=== PATIENT | female | born 1955 | race Caucasian/White ===

== ENCOUNTER → 2017-08-12 | Outpatient (CLI) | payer OTHER ==
[~2017-08-12] MED LIST: IOHEXOL 240 MG/ML 50ML VIAL. PO
[2017-08-12] MEDS: IOHEXOL 240 MG/ML 50ML VIAL. IV (10:59)
[2017-08-12] MEDS: IOHEXOL 300 MG/ML 100ML VIAL. IV (10:59)
== END | disposition home or self-care (01) ==
LOC: KCIC CT 09:07
DX: K57.90 Diverticulosis of intestine, part unspecified, without perforation or abscess without bleeding (principal)
CPT/HCPCS: 74177; Q9966; Q9967

== ENCOUNTER → 2018-08-24 | Outpatient (CLI) | payer OTHER ==
[~2018-08-24] MED LIST changes: +ALBU2.5V8 IH; +CITA20TA6 PO; -IOHEXOL 240 MG/ML 50ML VIAL. PO; +LISI-338 PO; +SIMV20TA3 PO
--- NOTE | 2018-08-24 16:35 | KCIC ---
CHEST PA LATERAL Clinical indications: Bronchitis. Productive cough. Past smoker. COMPARISON: April 04, 2010. Findings: No acute lung infiltrate or pleural effusion or pulmonary edema or lung mass or pneumothorax is seen. The heart size, pulmonary vasculature, mediastinum and both shell are unremarkable. The osseous structures appear intact. Impression: No acute radiographic abnormality is seen. Electronically signed by: Aly Vazquez MD (08/24/2018 4:31 PM) [facility]
== END | disposition home or self-care (01) ==
LOC: KCIC 10:58
PROVIDERS: ATTEND Nurse Practitioner Gerontology
DX: J40 Bronchitis, not specified as acute or chronic (principal); Z87.891 Personal history of nicotine dependence
CPT/HCPCS: 71046

== ENCOUNTER → 2020-03-06 | Outpatient (CLI) | payer OTHER ==
[~2020-03-06] MED LIST changes: +CONTRAST GIVEN. MC PRN; +IOHEXOL 240 MG/ML 50ML VIAL. PO ONE; +IOHEXOL 300 MG/ML 100ML VIAL. IV ONE; +SIMV20TA18 PO; -SIMV20TA3 PO
--- NOTE | 2020-03-06 16:26 | KCIC ---
EXAM: Abdomen and pelvis CT with intravenous contrast. HISTORY: Right lower quadrant pain. TECHNIQUE: Computed tomographic images of the abdomen and pelvis were obtained following the administration of intravenous contrast. Multiplanar reformatting was performed. *One or more of the following individualized dose reduction techniques were utilized for this examination: 1. Automated exposure control. 2. Adjustment of the mA and/or kV according to patient size. 3. Use of iterative reconstruction technique. COMPARISON: 08/12/2017. FINDINGS: Evaluation of the lower thorax demonstrates lingular and medial right middle lobe atelectasis or scarring. There is no infiltrate or pleural effusion. There is mild hepatic steatosis. No suspicious hepatic lesion is seen. The gallbladder and pancreas are unremarkable. There is a granuloma within the normal sized spleen. The adrenal glands and kidneys are unremarkable. There is no appendicitis. There is no bowel obstruction. There is distal colonic diverticulosis. There is no evidence of diverticulitis. The urinary bladder is empty. The uterus and adnexal regions are unremarkable. There is aortic and aortic branch vessel atherosclerosis. No aneurysm is seen. No lymphadenopathy is seen. No suspicious osseous lesion is seen. IMPRESSION: 1. No acute abdominal or pelvic finding. 2. Colonic diverticulosis. 2. Suspected slight hepatic steatosis. Electronically signed by: María Denney MD (03/06/2020 4:23 PM) [id number]
== END | disposition home or self-care (01) ==
LOC: KCIC CT 13:06
PROVIDERS: ATTEND Family Medicine
DX: K57.30 Diverticulosis of large intestine without perforation or abscess without bleeding (principal)
CPT/HCPCS: 74177; Q9966; Q9967

== ENCOUNTER 2021-09-22 01:28 | Emergency (ER) | payer BC, OTHER ==
[~2021-09-22] VITALS: Ht 157.5 cm; Wt 95.4 kg
[~2021-09-22 01:28] MED LIST changes: -CONTRAST GIVEN. MC PRN; -IOHEXOL 240 MG/ML 50ML VIAL. PO ONE; -IOHEXOL 300 MG/ML 100ML VIAL. IV ONE; -LISI-338 PO; +LISI5TAB15 PO
--- NOTE | 2021-09-22 01:32 | PHYS DOC ---
General Adult EDM: Chief Complaint: SHORTNESS OF BREATH HPI: HPI: Patient is a 66 year old female who presents with several months of intermittent shortness of breath, several weeks of coughing. She denies hemoptysis. She does report coughing up sputum. Sputum production changed within the last 2 weeks. She reports over the past few days, her cough and shortness of breath has become much worse, and she has been wheezing as well. She is taking albuterol as needed, without any relief. She reports that 1 or 2 weeks ago, she was seen by a nurse practitioner at her primary care doctor's office and was prescribed a Z-Balta and prednisone. She reports feeling better for a small amount of time, but symptoms never really improved. She is a former smoker, quit smoking in 2005. She has not been formally diagnosed with any specific lung disease, has never reportedly seen a abatement worker. She denies chest pain. She denies fevers or chills. She denies abdominal Pain, nausea, vomiting, lower extremity pain or swelling. She denies recent surgery, travel, hospitalization within the last 90 days. No previous history of intubation, respiratory failure or supplemental oxygen requirement. Review of Systems: Review of Systems: Constitutional: Denies fever or chills. [] HENT: Denies nasal congestion or sore throat. [] Respiratory: Cough, dyspnea, wheezing. Denies hemoptysis Cardiovascular: Denies chest pain or edema. [] GI: Denies abdominal pain, nausea, vomiting Musculoskeletal: Denies back pain or joint pain. Denies calf pain or lower extremity swelling. Integument: Denies rash. [] Neurologic: Denies headache, focal weakness or sensory changes. Denies dizziness or syncope. Psychiatric: Anxiety as it pertains to current clinical condition Heart Score: C/O Chest Pain: No Risk Factors: Risk Factors: DM, Current or recent (<one month) smoker, HTN, HLP, family history of CAD, obesity. Risk Scores: Score 0 - 3: 2.5% MACE over next 6 weeks - Discharge Home Score 4 - 6: 20.3% MACE over next 6 weeks - Admit for Clinical Observation Score 7 - 10: 72.7% MACE over next 6 weeks - Early Invasive Strategies Allergies: Allergies: Allergies Coded Allergies Type Severity Reaction Last Updated Verified Citric Acid Allergy Intermediate 11/09/14 Yes codeine Allergy Intermediate 11/09/14 Yes shellfish derived Allergy Intermediate 11/09/14 Yes Physical Exam: PE: Constitutional: Well developed, well nourished, mild to moderate respiratory distress, nontoxic. She does appear slightly older than stated age and is chronically ill-appearing. HENT: Normocephalic, atraumatic Eyes: Conjunctiva normal, no discharge. [] Neck: Normal range of motion, no tenderness, supple, no stridor. Trachea midline, no JVD, no meningismus Cardiovascular:Heart rate regular rhythm, +2 radial and +2 posterior tibial pulses bilaterally Lungs & Thorax: Mild to moderate tachypnea, inspiratory and expiratory wheezes bilaterally, coarse rhonchi bilaterally. Diminished breath sounds at bilateral bases. No stridor. Occasional pursed lip breathing, speaks in short but full sentences. No cyanosis. Abdomen: Abdomen is soft, nondistended, nontender to palpation Skin: Warm, dry, no erythema, no rash. [] Extremities: No tenderness, no cyanosis, no clubbing, ROM intact, no edema. No calf tenderness Neurologic: She is awake, alert, oriented x3, ambulatory with a steady gait, grossly normal motor function, no facial asymmetry, speech is fluent Psychologic: Anxious but cooperative EKG: EKG: EKG is interpreted at 0237 Rhythm is sinus Rate is 76 bpm [place] is left No STEMI Radiology/Procedures: Radiology/Procedures: IMAGING REPORT Signed PATIENT: ABEL CANO ACCOUNT: [id number] : 1955 LOCATION: ER AGE: 66 SEX: F EXAM STATUS: PRE ER ORD. PHYSICIAN: TERESA HENDERSON DO REASON: cough, dyspnea PROCEDURE: PORTABLE CHEST 1V XR CHEST 1V INDICATION: cough, dyspnea COMPARISON STUDY: 08/24/2018. FINDINGS: Lungs: Normal lung volume. No pulmonary mass or consolidation. The tracheobronchial tree and hilar structures are normal. Pleura: No pleural effusion or pneumothorax. Heart and Mediastinum: The cardiomediastinal silhouette is normal. The great vessels of the thorax are normal. IMPRESSION: No consolidation. Electronically signed by: Iván Bridges MD (09/22/2021 2:07 AM) [facility] DICTATED and SIGNED BY: IVÁN BRIDGES MD DATE: 09/22/21 [id number] 0 Course & Med Decision Making: Course & Med Decision Making Pertinent Labs and Imaging studies reviewed. (See chart for details) Is given Solu-Medrol, duo nebs and albuterol neb treatment. P.o. Tessalon given for cough. She is markedly improved. She reports no longer feeling dyspneic, or tachypnea is resolved, she manifest evidence of respiratory distress. She is resting much more comfortably. Lung exam is markedly improved. She does still have some scattered rhonchi, wheezing is resolved. O2 saturation 94 to 95% on room air. I have discussed the findings, differential diagnosis and plan of care with her. Clinically, she is otherwise well-appearing, markedly improved, hemodynamically stable, manifest no evidence of distress or hypoxia, no current clinical indication for admission at this time. I recommend she contact her primary care doctor for follow-up, she actually has an appointment scheduled tomorrow. I recommend she follow-up with outpatient pulmonology as well, as she may need further investigation for possible underlying obstructive pulmonary disease. Strict return precautions are given. She feels comfortable to plan of care. He is discharged in stable and improved condition. Dragon Disclaimer: Dragon Disclaimer: This electronic medical record was generated, in whole or in part, using a voice recognition dictation system. Departure Departure Impression: Primary Impression: Acute bronchospasm Additional Impressions: Dyspnea Qualified Codes: R06.00 - Dyspnea, unspecified History of tobacco use Disposition: HOME / SELF CARE / HOMELESS Condition: STABLE Referrals: ARTUR WILLIAM MD (PCP) MIREYA IRVING MD Patient Instructions: Bronchitis, Bronchospasm, Adult Additional Instructions: Take the medications as directed. You may use your inhaler every 4 hours as needed for wheezing. Please return to the ER for chest pain, refractory wheezing, any evidence of respiratory distress, uncontrolled vomiting, dehydration, if you develop a temperature of 100.4 or higher or for any other concerns. Please keep your appointment on Wednesday with your primary care doctor. You should consider outpatient pulmonology follow-up for further investigation of possible underlying chronic lung disease. Scripts Cefdinir (CEFDINIR) 300 Mg Capsule 1 CAP PO BID for 5 Days, #10 CAP Prov: TERESA HENDERSON DO 09/22/21 Prednisone (PREDNISONE) 50 Mg Tablet 1 TAB PO DAILY for 5 Days, #5 TAB Prov: TERESA HENDERSON DO 09/22/21 Benzonatate (BENZONATATE) 200 Mg Capsule 1 CAP PO PRN TID PRN for cough, #20 CAP 0 Refills Prov: TERESA HENDERSON DO 09/22/21 TERESA HENDERSON DO Sep 22, 2021 01:32
[2021-09-22] MEDS ORDERED: methylPREDNISolone SOD SUCC PF 125 MG/2 ML VIAL. IV ONE (02:00)
[2021-09-22] MEDS ORDERED: IPRATRPIUM/ALBUTEROL 0.5/2.5MG 3 ML NEBU. NEB ONE (02:00)
[2021-09-22] MEDS ORDERED: BENZONATATE 100 MG CAPSULE. PO ONE (02:00)
[2021-09-22 02:04] LABS: BASO # 0.1 x10^3/uL (0.0-0.2); BASO % 1 % (0-3); EOS # 0.5 x10^3/uL (0.0-0.7); EOS % 5 % (0-3); HEMATOCRIT 43.8 % (36.0-47.0); HEMOGLOBIN 14.7 g/dL (12.0-15.5); LYMPH # 2.6 x10^3/uL (1.0-4.8); LYMPH % 24 % (24-48); MEAN CORPUSCULAR HEMOGLOBIN 28 pg (25-35); MEAN CORPUSCULAR HGB CONC 34 g/dL (31-37); MEAN CORPUSCULAR VOLUME 84 fL (79-100); MONO # 0.9 x10^3/uL (0.0-1.1); MONO % 8 % (0-9); NEUT # 6.6 x10^3/uL (1.8-7.7); NEUT % 62 % (31-73); PLATELET COUNT 263 x10^3/uL (140-400); RED BLOOD COUNT 5.22 x10^6/uL (3.50-5.40); RED CELL DISTRIBUTION WIDTH 15.1 % (11.5-14.5); WHITE BLOOD COUNT 10.7 x10^3/uL (4.0-11.0)
--- NOTE | 2021-09-22 02:10 | RAD ---
XR CHEST 1V INDICATION: cough, dyspnea COMPARISON STUDY: 08/24/2018. FINDINGS: Lungs: Normal lung volume. No pulmonary mass or consolidation. The tracheobronchial tree and hilar st ructures are normal. Pleura: No pleural effusion or pneumothorax. Heart and Mediastinum: The cardiomediastinal silhouette is normal. The great vessels of the thorax ar e normal. IMPRESSION: No consolidation. Electronically signed by: Toro Bridges MD (09/22/2021 2:07 AM) [facility]
[2021-09-22 02:13] LABS: CALCIUM 8.5 mg/dL (8.5-10.1); GFR 55.5; POTASSIUM 4.7 mmol/L (3.5-5.1)
[2021-09-22 02:18] LABS: ALBUMIN 3.6 g/dL (3.4-5.0); ALBUMIN/GLOBULIN RATIO 0.9 (1.0-1.7); MAGNESIUM 2.3 mg/dL (1.8-2.4); TOTAL BILIRUBIN 0.3 mg/dL (0.2-1.0); TOTAL PROTEIN 7.6 g/dL (6.4-8.2)
--- NOTE | 2021-09-22 02:54 | EKG ---
[facility] [address] [place] [id number] Test Date: 2021-09-22 Test Time: 02:27:00 Pat Name: ABEL CANO Department: Room: Gender: F Reflesher: : 1955 Requested By: TERESA HENDERSON Order Number: [id number] Reading MD: Vidal Bailey MD Measurements Intervals [place] Rate: 83 P: 7 AL: 160 QRS: -53 QRSD: 86 T: 44 QT: 386 QTc: 454 Interpretive Statements SINUS RHYTHM ABNORMAL LEFT AXIS DEVIATION LEFT ANTERIOR FASCICULAR BLOCK ABNORMAL ECG Electronically Signed On 09-22-2021 8:19:28 [employer] GATHERING EDITOR by Vidal Bailey MD
[2021-09-22] MEDS ORDERED: ALBUTEROL SULFATE 2.5 MG/3 ML NEBU. NEB ONE (03:00)
[2021-09-22 03:09] LABS: INFLUENZA A PATIENT NEGATIVE (NEGATIVE); INFLUENZA B PATIENT NEGATIVE (NEGATIVE)
[2021-09-22 03:17] VITALS: BP 181/73
[2021-09-22] MEDS ORDERED: CEFD300C PO (03:27)
[2021-09-22] MEDS ORDERED: PRED50TA PO (03:27)
[2021-09-22] MEDS ORDERED: BENZ200C47 PO (03:27)
== END 2021-09-22 04:01 | disposition home or self-care (01) ==
LOC: ER 01:28
DX: J98.01 Acute bronchospasm (principal); R06.02 Shortness of breath; Z20.822 Contact with and (suspected) exposure to COVID-19; Z87.891 Personal history of nicotine dependence; Z88.5 Allergy status to narcotic agent; Z91.013 Allergy to seafood; Z88.8 Allergy status to other drugs, medicaments and biological substances
CPT/HCPCS: 36415; 71045; 80053; 83605; 83735; 83880; 84484; 85025; 87040; 87426; 87428; 93005; 94640; 96374; 99285; J2930; J7613